=== PATIENT | female | born 1935 | race Caucasian/White ===

== ENCOUNTER 2022-07-15 19:10 | Emergency (ER) | payer OTHER ==
[~2022-07-15] VITALS: Ht 167.6 cm; Wt 59.9 kg
[~2022-07-15 19:10] MED LIST: CALC-931 PO; FLEC50TA2 PO; HYDR25TA4 PO; LATA2.5D14 OP; LISI20TA PO; METO100T PO; POTA8CAP PO; SIMV40TA2 PO
[2022-07-15 19:13] VITALS: BP_SYST 189
--- NOTE | 2022-07-15 19:15 | NUR ---
PATIENT WALKING IN LIVING ROOM, HIT TRASH CAN WITH DOBBS, NO LOC, LACERATION TO LEFT DOBBS, BLEEDING CONTROLLED. (+)BLOOD THINNERS.
--- NOTE | 2022-07-15 19:18 | NUR ---
PATIENT BROUGHT BACK TO BED 8 TO BE SEEN, REPORT GIVEN TO BEDSIDE RN.
[2022-07-15] MEDS ORDERED: BACITRACIN 1 GM OINT TP ONE (19:45)
--- NOTE | 2022-07-15 19:45 | NUR ---
ERMD EVALUATING PT
--- NOTE | 2022-07-15 19:51 | NUR ---
86 YO F BIB NEIGHBOOR FROM HOME W C/O OPEN WOUND TO RIGHT MEDIAL LOWER LED, BLEEDING CONTROLLED, SUBCUTANEOUS FAT VISABLE. PT STATES SHE HIT HER LEG ON A TABLE. NO PURULENT DISCHARGE NOTED. PT A/O X4 AMBULATORY.
[2022-07-15] MEDS ORDERED: HYDROcodone/ACETAMIN 5-325 MG TAB (NORCO/ VICODIN) PO ONE (20:30)
[2022-07-15 20:44] VITALS: BP_SYST 167
--- NOTE | 2022-07-15 20:44 | NUR ---
Patient given written and verbal discharge instructions and verbalizes understanding. ER MD discussed with patient the results and treatment NO RX given. Patient educated on pain management and to follow up with PMD. Pain Scale 0/10 Opportunity for questions provided and answered.
== END 2022-07-15 20:44 | disposition home or self-care (01) ==
LOC: SED 19:10
DX: S81.812A Laceration without foreign body, left lower leg, initial encounter (principal); I10 Essential (primary) hypertension; E78.5 Hyperlipidemia, unspecified; Z88.2 Allergy status to sulfonamides; Z79.899 Other long term (current) drug therapy; W22.8XXA Striking against or struck by other objects, initial encounter; Y93.89 Activity, other specified; Y92.89 Other specified places as the place of occurrence of the external cause; Y99.8 Other external cause status
CPT/HCPCS: 99282